=== PATIENT | male | born 1970 | race Hispanic/Latino ===

== ENCOUNTER 2020-10-02 03:56 | Observation (INO) | payer BC ==
--- NOTE | 2020-10-02 04:58 | EDPHYS ---
Physician Documentation [facility] Name: Vipin Grant Jr Age: 50 yrs Sex: Male : 1970 Arrival Date: 10/02/2020 Time: 04:00 Bed 19 Private MD: ED Physician Aubrey Thompson HPI: 10/02 04:53 This 50 yrs old Male presents to ER via Ambulatory with complaints of Chest raheel Pain > 30 y/o. 04:53 The patient or guardian reports chest pain that is located primarily in the anterior raheel chest wall, left. Onset: just prior to arrival, this morning. The pain radiates to the left arm. Associated signs and symptoms: The patient has no apparent associated signs or symptoms. The chest pain is described as a heaviness, a pressure. Duration: The patient or guardian reports a single episode, that is still ongoing. Modifying factors: The symptoms are alleviated by nothing. the symptoms are aggravated by nothing. Severity of pain: At its worst the pain was moderate in the emergency department the pain is unchanged. The patient has not experienced similar symptoms in the past. Historical: - Allergies: 04:50 Codeine; em - Home Meds: 04:50 None [Active]; em - PMHx: 04:50 None; em - PSHx: 04:50 None; em - Immunization history:: Adult Immunizations unknown. - Social history:: Smoking status: Patient denies any tobacco usage or history of. - Family history:: not pertinent. ROS: 04:53 Constitutional: Negative for fever, chills, and weight loss, Eyes: Negative for injury, raheel pain, redness, and discharge, ENT: Negative for injury, pain, and discharge, Neck: Negative for injury, pain, and swelling, Respiratory: Negative for shortness of breath, cough, wheezing, and pleuritic chest pain, Abdomen/GI: Negative for abdominal pain, nausea, vomiting, diarrhea, and constipation, Back: Negative for injury and pain, : Negative for injury, bleeding, discharge, and swelling, MS/Extremity: Negative for injury and deformity, Skin: Negative for injury, rash, and discoloration, Neuro: Negative for headache, weakness, numbness, tingling, and seizure, Psych: Negative for depression, anxiety, suicide ideation, homicidal ideation, and hallucinations, Allergy/Immunology: Negative for hives, rash, and allergies, Endocrine: Negative for neck swelling, polydipsia, polyuria, polyphagia, and marked weight changes, Hematologic/Lymphatic: Negative for swollen nodes, abnormal bleeding, and unusual bruising. 04:53 Cardiovascular: Positive for chest pain. Exam: 04:53 Constitutional: This is a well developed, well nourished patient who is awake, alert, raheel and in no acute distress. Head/Face: Normocephalic, atraumatic. Eyes: Pupils equal round and reactive to light, extra-ocular motions intact. Lids and lashes normal. Conjunctiva and sclera are non-icteric and not injected. Cornea within normal limits. Periorbital areas with no swelling, redness, or edema. ENT: Nares patent. No nasal discharge, no septal abnormalities noted. Tympanic membranes are normal and external auditory canals are clear. Oropharynx with no redness, swelling, or masses, exudates, or evidence of obstruction, uvula midline. Mucous membranes moist. Neck: Trachea midline, no thyromegaly or masses palpated, and no cervical lymphadenopathy. Supple, full range of motion without nuchal rigidity, or vertebral point tenderness. No Meningismus. Chest/axilla: Normal chest wall appearance and motion. Nontender with no deformity. No lesions are appreciated. Cardiovascular: Regular rate and rhythm with a normal S1 and S2. No gallops, murmurs, or rubs. Normal PMI, no JVD. No pulse deficits. Respiratory: Lungs have equal breath sounds bilaterally, clear to auscultation and percussion. No rales, rhonchi or wheezes noted. No increased work of breathing, no retractions or nasal flaring. Abdomen/GI: Soft, non-tender, with normal bowel sounds. No distension or tympany. No guarding or rebound. No evidence of tenderness throughout. Back: No spinal tenderness. No costovertebral tenderness. Full range of motion. Male : Normal genitalia with no discharge or lesions. Skin: Warm, dry with normal turgor. Normal color with no rashes, no lesions, and no evidence of cellulitis. MS/ Extremity: Pulses equal, no cyanosis. Neurovascular intact. Full, normal range of motion. Neuro: Awake and alert, GCS 15, oriented to person, place, time, and situation. Cranial nerves II-XII grossly intact. Motor strength 5/5 in all extremities. Sensory grossly intact. Cerebellar exam normal. Normal gait. Psych: Awake, alert, with orientation to person, place and time. Behavior, mood, and affect are within normal limits. 04:53 Musculoskeletal/extremity: DVT Exam: No signs of deep vein thrombosis. no pain, no swelling, no tenderness, negative Homans' sign noted on exam, no appreciated bluish discoloration, no erythema, no increased warmth. Vital Signs: 04:56 BP 152 / 100; Pulse 76; Resp 18; Temp 98; Pulse Ox 97% ; Weight 83.91 kg; Height 5 ft. ea 7 in. (170.18 cm); Pain 7/10; 05:25 BP 126 / 87; Pulse 68; Resp 23; Pulse Ox 95% ; ds4 07:30 BP 154 / 102; Pulse 56; Resp 18; Pulse Ox 96% ; bp 08:30 BP 117 / 85; Pulse 58; Resp 18; Pulse Ox 95% ; bp 09:30 BP 114 / 84; Pulse 58; Resp 17; Pulse Ox 93% ; bp 10:30 BP 107 / 88; Pulse 54; Resp 20; Weight 43.54 kg; bp 11:30 BP 149 / 83; Pulse 61; Resp 17; Pulse Ox 97% ; bp 12:30 BP 120 / 89; Pulse 53; Resp 16; Pulse Ox 97% ; bp 10:30 Body Mass Index 15.04 (43.54 kg, 170.18 cm) bp MDM: 04:36 Patient medically screened. raheel 04:55 Differential diagnosis: abnormal EKG, acute myocardial infarction, chest wall pain, raheel congestive heart failure cholecystitis, Cholelithiasis esophagitis, gastroesophageal reflux disease (GERD), hiatal hernia, pneumonia, pulmonary embolus, stable angina, unstable angina. HEART Score: History: Moderately Suspicious (1), ECG: Non specific repolarization disturbance / LBTB / PM (1), Age: < or = 45 years (0), Risk Factors: No Risk Factors Known (0), Troponin: < or = 1 x Normal Limit (0). The patient was given aspirin in the Emergency Department. The patient's deep vein thrombosis risk score was calculated as follows: Total Score: 0. This patient was found to be at low risk for a deep vein thrombosis by using the Well's assessment criteria. The patient's pulmonary embolism risk score was calculated as follows: Total Score: 0-2 points. This patient was found to be at low risk for a pulmonary embolism by using the Well's assessment criteria. [place] Risk Score: TOTAL SCORE = 0. Data reviewed: vital signs, nurses notes, lab test result(s), EKG, radiologic studies, CT scan, plain films. Data interpreted: color television console monitor: rate is 69 beats/min, rhythm is regular. Test interpretation: by ED physician or midlevel provider: ECG, plain radiologic studies. 10/02 04:05 Order name: Basic Metabolic Panel [facility] 10/02 04:05 Order name: CBC with Diff [facility] 10/02 04:05 Order name: LFT's [facility] 10/02 04:05 Order name: Magnesium [facility] 10/02 04:05 Order name: NT PRO-BNP [facility] 10/02 04:05 Order name: PT-INR [facility] 10/02 04:05 Order name: Troponin (emerg Dept Use Only); Complete Time: 05:43 [facility] 10/02 04:05 Order name: Lipase; Complete Time: 05:43 [facility] 10/02 04:05 Order name: COVID-19 : Document "Date of Symptom Onset" if Symptomatic. [facility] 10/02 04:06 Order name: Basic Metabolic Panel; Complete Time: 05:43 [facility] 10/02 04:06 Order name: CBC with Automated Diff; Complete Time: 05:15 [facility] 10/02 04:06 Order name: Liver (Hepatic) Function; Complete Time: 05:43 [facility] 10/02 04:06 Order name: Magnesium; Complete Time: 05:43 [facility] 10/02 04:06 Order name: NT PRO-BNP; Complete Time: 05:43 [facility] 10/02 04:05 Order name: XRAY Chest (1 view) [facility] 10/02 04:05 Order name: EKG; Complete Time: 04:06 [facility] 10/02 04:06 Order name: Protime (+INR) [facility] 10/02 05:12 Order name: COVID-19 : Document "Date of Symptom Onset" if Symptomatic. 10/02 08:21 Order name: SARS-COV-2 RT PCR [facility] 10/02 11:34 Order name: Troponin I [facility] 10/02 11:34 Order name: Lipid Profile [facility] 10/02 11:34 Order name: T4 Free [facility] 10/02 11:34 Order name: Thyroid Stimulating Hormone [facility] 10/02 04:05 Order name: Cardiac monitoring; Complete Time: 04:47 raheel 10/02 04:05 Order name: EKG - Nurse/Tech; Complete Time: 04:47 raheel 10/02 04:05 Order name: IV Saline Lock; Complete Time: 04:47 raheel 10/02 04:05 Order name: Labs collected and sent; Complete Time: 04:47 raheel 10/02 04:05 Order name: O2 Per Protocol; Complete Time: 04:47 raheel 10/02 04:05 Order name: O2 Sat Monitoring; Complete Time: 04:47 raheel Administered Medications: 05:01 Not Given (Duplicate Order): PlaVIX (clopidogrel) 300 mg PO once raheel 05:10 Drug: Aspirin Chewable Tablet 324 mg Route: PO; ea 08:33 Follow up: Response: No adverse reaction bp 05:10 Drug: Lovenox (enoxaparin) 1 mg/kg Route: Sub-Q; Site: right lower abdomen; ea 08:33 Follow up: Response: No adverse reaction bp 05:10 Drug: Lopressor (metoprolol TARTRATE) 50 mg Route: PO; ea 08:33 Follow up: Response: No adverse reaction bp 05:10 Drug: Pepcid (famotidine) 20 mg Route: IVP; Site: right antecubital; ea 08:33 Follow up: Response: No adverse reaction bp 05:10 Drug: morphine 2 mg Route: IVP; Site: right antecubital; ea 08:32 Follow up: Response: Pain is decreased bp 05:10 Drug: Zofran (Ondansetron) 4 mg Route: IVP; Site: right antecubital; ea 08:32 Follow up: Response: No adverse reaction bp Disposition Summary: 10/02/20 04:57 Hospitalization Ordered Hospitalization Status: Observation raheel Provider: Avtar Adler cha Condition: Fair raheel Problem: new raheel Symptoms: have improved raheel Bed/Room Type: Standard raheel Location: Telemetry/MedSurg (observation)(10/02/20 09:22) dw Room Assignment: 211(10/02/20 09:22) dw Diagnosis - Chest pain, unspecified raheel Forms: - Medication Reconciliation Form raheel - SBAR form raheel Signatures: Dispatcher [employer] Kaye Powers RN Aubrey Sorensen MD MD cha Munoz, Edgar, RN RN Shannan John, RN RN Ed Barry RN RN bp Corrections: (The following items were deleted from the chart) 08:40 04:57 Telemetry/MedSurg (observation) raheel bp 08:40 04:57 raheel bp 09:22 08:40 [facility] ER HOLD bp dw 09:22 08:40 ERHOLD- bp dw
--- NOTE | 2020-10-02 04:58 | ER ---
Nurse's Notes [facility] Name: Vipin Grant Jr Age: 50 yrs Sex: Male : 1970 Arrival Date: 10/02/2020 Time: 04:00 Bed 19 Private MD: Diagnosis: Chest pain, unspecified Presentation: 10/02 04:48 Chief complaint: Patient states: Reports chest pain that woke him up from his sleep at em 2 am, pt reports it feels like pressure on the upper left chest. Reports he had a recent loss. Coronavirus screen: At this time, the client does not indicate any symptoms associated with coronavirus-19. Ebola Screen: No symptoms or risks identified at this time. Initial Sepsis Screen: Does the patient meet any 2 criteria? No. Patient's initial sepsis screen is negative. Does the patient have a suspected source of infection? No. Patient's initial sepsis screen is negative. Risk Assessment: Do you want to hurt yourself or someone else? Patient reports no desire to harm self or others. Onset of symptoms was October 02, 2020. 04:48 Acuity: RADHA 3 em 04:48 Method Of Arrival: Ambulatory em Triage Assessment: 04:49 General: Appears uncomfortable, Behavior is appropriate for age. Pain: Complains of em pain in anterior aspect of left upper chest. Neuro: Level of Consciousness is awake, alert, obeys commands, Oriented to person, place, time. Cardiovascular: Patient's skin is warm and dry. Respiratory: Airway is patent Respiratory effort is even, unlabored, Respiratory pattern is regular, symmetrical. Derm: Skin is pink, warm \T\ dry. Historical: - Allergies: 04:50 Codeine; em - Home Meds: 04:50 None [Active]; em - PMHx: 04:50 None; em - PSHx: 04:50 None; em - Immunization history:: Adult Immunizations unknown. - Social history:: Smoking status: Patient denies any tobacco usage or history of. - Family history:: not pertinent. Screenin:47 Abuse screen: Denies threats or abuse. Nutritional screening: No deficits noted. em Tuberculosis screening: No symptoms or risk factors identified. Fall Risk IV access (20 points). Assessment: 05:11 Reassessment: Patient and/or family updated on plan of care and expected duration. Pain ea level reassessed. Patient is alert, oriented x 3, equal unlabored respirations, skin warm/dry/pink. Hospitalist at bedside updating pt on plan of care. 07:00 Reassessment: RECD REPORT FROM SHANNAN POP. 50YO HM P/W CHEST PAIN. ADMIT INITIATED. bp 09:00 Reassessment: No changes from previously documented assessment. bp 11:00 Reassessment: No changes from previously documented assessment. Patient and/or family bp updated on plan of care and expected duration. Pain level reassessed. Patient is alert, oriented x 3, equal unlabored respirations, skin warm/dry/pink. 12:23 Reassessment: REPORT TO CELY POP. bp Vital Signs: 04:56 BP 152 / 100; Pulse 76; Resp 18; Temp 98; Pulse Ox 97% ; Weight 83.91 kg; Height 5 ft. ea 7 in. (170.18 cm); Pain 7/10; 05:25 BP 126 / 87; Pulse 68; Resp 23; Pulse Ox 95% ; ds4 07:30 BP 154 / 102; Pulse 56; Resp 18; Pulse Ox 96% ; bp 08:30 BP 117 / 85; Pulse 58; Resp 18; Pulse Ox 95% ; bp 09:30 BP 114 / 84; Pulse 58; Resp 17; Pulse Ox 93% ; bp 10:30 BP 107 / 88; Pulse 54; Resp 20; Weight 43.54 kg; bp 11:30 BP 149 / 83; Pulse 61; Resp 17; Pulse Ox 97% ; bp 12:30 BP 120 / 89; Pulse 53; Resp 16; Pulse Ox 97% ; bp 10:30 Body Mass Index 15.04 (43.54 kg, 170.18 cm) bp ED Course: 04:00 Patient arrived in ED. wm 04:04 Aubery Thompson MD is Attending Physician. raheel 04:48 Patient has correct armband on for positive identification. Placed in gown. Bed in low em position. Call light in reach. Side rails up X2. athletic monitor on. Pulse ox on. NIBP on. 04:49 Triage completed. em 04:49 Arm band placed on right wrist. Patient placed in an exam room, on a stretcher, on em campus monitor, on pulse oximetry. 04:50 Patient maintains SpO2 saturation greater than 95% on room air. em 04:53 Inserted saline lock: 20 gauge in right antecubital area, using aseptic technique. ds4 Blood collected. 04:54 XRAY Chest (1 view) In Process Unspecified. EDMS 04:56 Shannan Madrid RN is Primary Nurse. ea 04:57 Avtar Adler is Hospitalizing Provider. raheel 05:12 No provider procedures requiring assistance completed. Patient admitted, IV remains in ea place. 07:22 Primary Nurse role handed off by Shannan Madrid RN bp 07:22 Ed Weiner, KIESHA is Primary Nurse. bp Administered Medications: 05:01 Not Given (Duplicate Order): PlaVIX (clopidogrel) 300 mg PO once raheel 05:10 Drug: Aspirin Chewable Tablet 324 mg Route: PO; ea 08:33 Follow up: Response: No adverse reaction bp 05:10 Drug: Lovenox (enoxaparin) 1 mg/kg Route: Sub-Q; Site: right lower abdomen; ea 08:33 Follow up: Response: No adverse reaction bp 05:10 Drug: Lopressor (metoprolol TARTRATE) 50 mg Route: PO; ea 08:33 Follow up: Response: No adverse reaction bp 05:10 Drug: Pepcid (famotidine) 20 mg Route: IVP; Site: right antecubital; ea 08:33 Follow up: Response: No adverse reaction bp 05:10 Drug: morphine 2 mg Route: IVP; Site: right antecubital; ea 08:32 Follow up: Response: Pain is decreased bp 05:10 Drug: Zofran (Ondansetron) 4 mg Route: IVP; Site: right antecubital; ea 08:32 Follow up: Response: No adverse reaction bp Outcome: 04:57 Decision to Hospitalize by Provider. raheel 05:12 Instructed on the need for admit, Demonstrated understanding of instructions. ea 09:50 Discharged to home ambulatory, with family. bp 09:50 Condition: stable 14:20 Patient left the ED. bp Signatures: Dispatcher [employer] EDMS Aubrey Thompson MD MD cha Munoz, Edgar, RN RN Korey Durant ds4 Shannan Madrid RN RN ea Peltier, Brian, RN RN bp Marsh, Wendy wm
[2020-10-02 05:08] LABS: Absolute Lymphocytes (CBC) 1.5 K/uL (0.7-4.9); Basophils % 0.6 % (0-1.3); Hematocrit 39.8 % (39.6-49.0); Lymphocytes % 27.3 % (15.3-44.8); MPV 7.3 fL (7.6-11.3); RBC Red Blood Cell Count 4.28 M/uL (4.33-5.43)
--- NOTE | 2020-10-02 05:11 | P.HP ---
Certification for Inpatient Patient admitted to: Observation With expected LOS: <2 Midnights Patient will require the following post-hospital care: None Practitioner: I am a practitioner with admitting privileges, knowledge of patient current condition, hospital course, and medical plan of care. Services: Services provided to patient in accordance with Admission requirements found in Title 42 Section 412.3 of the Code of Federal Regulations Patient History Date of Service: 10/02/20 Reason for admission: Chest pain History of Present Illness: 50-year-old otherwise healthy male presents emergency department for chest pain. Patient reports pain woke him up from his sleep described as pressure-like radiating to the left arm with no other associated signs or symptoms. Patient and father with cardiac history EKG without any ST segment changes chest x-ray unremarkable. ED provider wishes to admit under observation for further evaluation and management. Patient given full dose Lovenox, aspirin, beta-hector in the ER. Allergies codeine Allergy (Verified 09/03/16 08:12) Shortness of breath Home Medications: Amox/Clavulanate [Augmentin 875-125 Tab*] 875 mg PO BID 09/03/16 Aspirin [Aspirin EC] 81 mg PO DAILY #30 tablet. 09/03/16 Pantoprazole Sodium [Protonix] 40 mg PO DAILY #30 tablet. 09/03/16 - Past Medical/Surgical History Diabetic: No -: none -: none - Family History Father -: Heart disease, Diabetes Mother -: Heart disease - Social History Smoking Status: Never smoker Alcohol use: Yes CD- Drugs: No Caffeine use: Yes Place of Residence: Home Review of Systems 10-point ROS is otherwise unremarkable Cardiovascular: Chest Pain Physical Examination - Physical Exam General: Alert, In no apparent distress, Oriented x3 HEENT: Atraumatic, PERRLA, Mucous membr. moist/pink, EOMI, Sclerae nonicteric Neck: Supple, 2+ carotid pulse no bruit, No LAD, Without JVD or thyroid abnormality Respiratory: Clear to auscultation bilaterally, Normal air movement Cardiovascular: Regular rate/rhythm, Normal S1 S2 Gastrointestinal: Normal bowel sounds, No tenderness Musculoskeletal: No tenderness Integumentary: No rashes Neurological: Normal speech, Normal strength at 5/5 x4 extr, Normal tone, Normal affect Assessment and Plan - Plan Assessment: Chest pain rule out ACS Plan: Chest pain rule out ACS: Trend troponins, monitor on telemetry, daily aspirin, statin, beta-hector. Cardiology consult in place. Lipid panel, thyroid panel with morning labs. DVT PPX: Lovenox Code status: Full Discharge Plan: Home Plan to discharge in: 24 Hours - Advance Directives Does patient have a Living Will: No Does patient have a Durable POA for Healthcare: No - Code Status/Comfort Care Code Status Assessed: Yes (Full code) Critical Care: No Time Spent Managing Pts Care (In Minutes): 55
[2020-10-02] MEDS ORDERED: CLOPIDOGREL 75 MG TABLET ONE (05:22)
[2020-10-02] MEDS ORDERED: MORPHINE 2 MG/ML SYR ONE ×2 (05:22→14:17)
[2020-10-02] MEDS ORDERED: METOPROLOL TAR 50 MG TAB ONE (05:22)
[2020-10-02] MEDS ORDERED: ONDANSETRON 4 MG/2 ML VIAL ONE (05:22)
[2020-10-02] MEDS ORDERED: FAMOTIDINE 20 MG/2 ML VIAL IV ONE (05:23)
[2020-10-02] MEDS ORDERED: ENOXAPARIN 80 MG/0.8 ML SQ ONE (05:23)
[2020-10-02] MEDS ORDERED: ASPIRIN 325 MG TAB ONE (05:23)
[2020-10-02 05:42] LABS: ALT/SGPT 47 U/L (12-78); AST/SGOT 47 U/L (15-37); Albumin 3.7 g/dL (3.4-5.0); Alkaline Phosphatase 115 U/L (45-117); BUN Blood Urea Nitrogen 15 mg/dL (7-18); Bicarbonate 28 mmol/L (21-32); Bilirubin Direct < 0.1 mg/dL (0-0.2); Bilirubin Total 0.2 mg/dL (0.2-1.0); Glucose Level 95 mg/dL (74-106); Lipase 114 U/L (73-393); Magnesium 2.1 mg/dL (1.8-2.4); NT PRO-BNP 9 pg/mL (<125); Potassium 3.8 mmol/L (3.5-5.1); Protein, Total 7.4 g/dL (6.4-8.2); Sodium Level 140 mmol/L (136-145); Troponin (Emerg Dept Use Only) < 0.02 ng/mL (0.0-0.045)
[2020-10-02] MEDS ORDERED: ONDANSETRON 4 MG/2 ML VIAL IV PRN (08:38)
[2020-10-02] MEDS ORDERED: MORPHINE 2 MG/ML SYR IV PRN (08:38)
[2020-10-02] MEDS ORDERED: ACETAMINOPHEN 500 MG TAB PO PRN (08:38)
[2020-10-02] MEDS: ENOXAPARIN 40 MG/0.4 ML SQ SCH (09:00)
--- NOTE | 2020-10-02 10:16 | RAD REPORT ---
EXAM DESCRIPTION: RAD - Chest Single View - 10/02/2020 4:53 am CLINICAL HISTORY: CHEST PAIN Chest pain. COMPARISON: Chest Single View dated 09/03/2016; CHEST PA AND LAT 2 VIEW dated 04/12/2008; CHEST SINGLE V IEW dated 11/27/2007; CHEST PA AND LAT 2 VIEW dated 11/19/1999 FINDINGS: Portable technique limits examination quality. The lungs are grossly clear. The heart is normal in size. No displaced fractures. IMPRESSION: No acute intrathoracic process suspected.
[2020-10-02 11:34] LABS: HDL Cholesterol 64 mg/dL (40-60); LDL Cholesterol, Calculated 107 (<130); Troponin I < 0.02 ng/mL (0.0-0.045)
[2020-10-02 14:58] VITALS: BMI 29.7
--- NOTE | 2020-10-02 17:26 | CON ---
Date of Consultation: 10/02/2020 Reason For Consultation: Chest pain. 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 It was sharp at first on the left upper chest and then became pressure like, lasted for some time and then resolved. Denies having any nausea, vo miting, or diaphoresis with it. No exertional chest pain. Denies having any other complaints. Jackson es having any cough or fever. Past Medical History: None. Medications: None. Allergies: CODEINE. Family History: No premature coronary artery disease or cancer. Social History: Does not smoke or drink. Does not use any drugs. Review of Systems: All systems reviewed and they were negative except mentioned in HPI. Physical Examination: Vital Signs: His temperature is 97.0, pulse 54, breathing at 17, blood pressure 119/79, saturating 9 7% on room air. General: Pleasant middle-aged male, in no distress. Head and Neck: Pupils are equal, reactive to light. Intact eye movements. No JVD. No cervical lym phadenopathy. Neck: Supple. Thyroid is not enlarged. Lungs: Clear to auscultation bilaterally. No rhonchi, rales, or crackles. No accessory muscle use. Heart: Regular rate and rhythm. No extra sounds. Abdomen: Soft, nontender. Bowel sounds positive. No organomegaly. No masses or hernia. No rigidi ty or rebound. Extremities: No edema, clubbing, or cyanosis. Intact pulses. Skin: No rash noted. Neurologic: Alert, awake, oriented x3. No acute focal deficits appreciated. Investigations: Troponins x3 are negative. LDL is 107, creatinine 1.06, hemoglobin 13.8. EKG witho ut acute specific abnormalities. Chest x-ray is negative. Assessment And Recommendations: Chest pain, atypical pain. The patient is very athletic without exe rtional chest pain. Cardiac enzymes are negative. From cardiac standpoint, I will recommend to [facility] D-dimer. If it is negative, then the patient can be released and follow up as an outpatient for ex ercise stress test and echocardiogram. SR/MODL Voice ID: [id number] Report ID: [id number]
[2020-10-02 17:57] LABS: Urine Appearance CLEAR (Clear); Urine Bilirubin NEGATIVE (Negative); Urine Blood NEGATIVE (Negative); Urine Color YELLOW (Yellow); Urine Glucose NEGATIVE (Negative); Urine Protein NEGATIVE (Negative); Urine Urobilinogen 0.2 mg/dL (0.2-1.0)
[2020-10-02 18:05] LABS: Urine Microscopic Reflex NO UMIC
[2020-10-02] MEDS ORDERED: ATORVASTATIN 40 MG TAB PO SCH (21:00)
[2020-10-03 06:00] LABS: Absolute Lymphocytes (CBC) 1.8 K/uL (0.7-4.9); Basophils % 0.4 % (0-1.3); Lymphocytes % 35.1 % (15.3-44.8); MPV 7.2 fL (7.6-11.3); RBC Red Blood Cell Count 4.09 M/uL (4.33-5.43)
[2020-10-03] MEDS ORDERED: METOPROLOL TAR 25 MG TAB PO SCH (06:00)
[2020-10-03 06:28] LABS: Albumin 3.4 g/dL (3.4-5.0); Bilirubin Total 0.7 mg/dL (0.2-1.0); Potassium 4.1 mmol/L (3.5-5.1); Protein, Total 6.7 g/dL (6.4-8.2)
[2020-10-03] MEDS: ENOXAPARIN 40 MG/0.4 ML SQ SCH (08:31)
[2020-10-03] MEDS ORDERED: ASPIRIN EC 81 MG TAB PO SCH (09:00)
[2020-10-03 12:36] VITALS: O2SAT 95
[2020-10-03 12:48] VITALS: BP 129/70; TEMP 97.5
--- NOTE | 2020-10-03 12:59 | RAD REPORT ---
EXAM DESCRIPTION: NM - Rest Stress Cardiac Imaging - 10/03/2020 12:36 pm CLINICAL HISTORY: Chest pain COMPARISON: None. TECHNIQUE: The patient was administered 10.3 mCi of Tc 99m Sestamibi prior to resting SPECT imaging of the heart. The patient was then administered 31.2 mCi of Tc 99m Sestamibi following exercise or ph armacologic stress. Multiplanar SPECT images were reviewed. FINDINGS: The end diastolic volume is 122 ml, the end systolic volume is 60 ml, and the ejection fra ction is 51 %. Physiologic distribution of the radiopharmaceutical through the myocardium is noted. No stress induce d ischemic defect is seen to suggest stress induced ischemia. No fixed defect is seen to suggest hibe rnating myocardium or scarred myocardium. IMPRESSION: No stress induced ischemia or other suspicious findings. End-diastolic volume was 122 milliliters with a 51% ejection fraction.
--- NOTE | 2020-10-03 13:47 | TREADMILL ---
70% H.R.: 120 85% H.R.: 1496 90% H.R.: 155 100% H.R.: 172 DX: CHEST PAIN Date of Study: 10/03/2020 Ht: 5' 7 " Wt: 96 lb 0 oz Consulting Physician: KATERYNA MEDICATIONS: LIPITOR, ASPIRIN, LOVENOX, LOPRESSOR HISTORY: 50 YEAR OLD WITH ATYPICAL CHEST PAIN PHYSICIAL EXAMINATION: RESTING B.P.: 121/72 RESTING H.R.: 73 RESTING EKG: NORMAL PROTOCOL: JENNIFER CARDIOLITE EXERCISE TIME: 10:20 MAXIMUM HEART RATE: 158 91 % OF PREDICTED B.P. AT PEAK STRESS: 207/88 H.R. AT 1 MINUTE POST EXERCISE: 132 IMPRESSION: JENNIFER CARDIOLITE PERFORMED. CARDIOLITE INJECTED PER PROTOCOL. SEE NUCLEAR MEDICINE REPORT. NO ARRHYTHMIAS NOTED. THE PATIENT EXERCISED ACCORDING TO THE JENNIFER TO 10:20, ACHIENVING A WORK LEVEL OF MAX METS: 12:35. THE MAXIMAL HEART RATE OF 158 BEATS PER MINUTE. THIS VALUE REPRESENTS 90% OF THE MAXIMAL HEART RATE. THE MAXIMUM BLOOD PRESSURE OF 207/88 mmHg.
--- NOTE | 2020-10-03 14:12 | P.DS ---
Admission Date: 10/02/20 Discharge Date: 10/03/20 Disposition: ROUTINE DISCHARGE Discharge Condition: FAIR Reason for Admission: Chest pain - Problems (1) Chest pain Current Visit: No Status: Acute Qualifiers: Chest pain type: unspecified Qualified Code(s): R07.9 - Chest pain, unspecified (2) GERD (gastroesophageal reflux disease) Current Visit: No Status: Suspected Qualifiers: Esophagitis presence: without esophagitis Qualified Code(s): K21.9 - Gastro-esophageal reflux disease without esophagitis Brief History of Present Illness: 50-year-old gentleman presented emergency department for chest pain. Patient reports chest pain pain which woke him up from his sleep described as pressure- like radiating to the left arm with no other associated signs or symptoms. Patient reported significant CAD family history. EKG without any ST segment changes, chest x-ray unremarkable. Patient hospitalized for further management. Hospital Course: Patient placed under observation. His troponin trended negative. Patient was chest pain-free during the hospital stay. Nuclear stress test done showed no stress-induced ischemia. He was seen in consultation by cardiology. ACS has been ruled out. Patient deemed stable for discharge. Vital Signs/Physical Exam: Temp Pulse Resp BP Pulse Ox 97.5 F 81 16 129/70 95 10/03/20 12:00 10/03/20 12:00 10/03/20 12:00 10/03/20 12:00 10/03/20 12:00 General: Alert, In no apparent distress, Oriented x3 HEENT: Mucous membr. moist/pink Neck: JVD not distended Respiratory: Clear to auscultation bilaterally, Normal air movement Cardiovascular: No edema, Regular rate/rhythm, Normal S1 S2 Gastrointestinal: Normal bowel sounds, Soft and benign, Non-distended Musculoskeletal: No swelling Integumentary: No rashes Neurological: Normal strength at 5/5 x4 extr Laboratory Data at Discharge: WBC 5.10 K/uL (4.3-10.9) 10/03/20 05:26 Hgb 13.2 g/dL (13.6-17.9) L 10/03/20 05:26 Hct 38.0 % (39.6-49.0) L 10/03/20 05:26 Plt Count 312 K/uL (152-406) 10/03/20 05:26 PT Cancelled 10/02/20 04:05 INR Cancelled 10/02/20 04:05 Sodium 139 mmol/L (136-145) 10/03/20 05:26 Potassium 4.1 mmol/L (3.5-5.1) 10/03/20 05:26 BUN 17 mg/dL (7-18) 10/03/20 05:26 Creatinine 1.15 mg/dL (0.55-1.3) 10/03/20 05:26 Glucose 95 mg/dL (74-106) 10/03/20 05:26 Magnesium 2.1 mg/dL (1.8-2.4) 10/02/20 04:51 Total Bilirubin 0.7 mg/dL (0.2-1.0) 10/03/20 05:26 AST 32 U/L (15-37) 10/03/20 05:26 ALT 39 U/L (12-78) 10/03/20 05:26 Alkaline Phosphatase 81 U/L (45-117) 10/03/20 05:26 Troponin I Cancelled 10/02/20 17:00 Triglycerides 78 mg/dL (<150) 10/02/20 10:44 Cholesterol 187 mg/dL (<200) 10/02/20 10:44 HDL Cholesterol 64 mg/dL (40-60) H 10/02/20 10:44 Cholesterol/HDL Ratio 2.92 10/02/20 10:44 Lipase 114 U/L (73-393) 10/02/20 04:51 Home Medications: Aspirin [Aspirin EC 81 MG] 81 mg PO DAILY #30 tablet. 10/03/20 New Medications: Aspirin [Aspirin EC 81 MG] 81 mg PO DAILY #30 tablet. Diet: AHA Activity: Ad [place] Followup: NONE,NONE [Primary Care Provider] - Yefri Serrato MD [ACTIVE - CAN ADMIT] - 1-2 Weeks
--- NOTE | 2020-10-06 11:18 | PN ---
Date of Progress Note: 10/03/2020 Mr. Grant is 50, was seen by Dr. Serrato for chest pain. Underwent a stress Myoview on 10/03/2020. H bailee had a normal EKG. No ST changes with exercise. Normal blood pressure, normal blood pressure respo nse. No arrhythmia. The nuclear stress test was read as negative without any evidence of ischemia. Mr. Grant can go home whenever it is okay with admitting physician. If his pain returns, we will be happy to see him in the office. YOANA/JUAN C Voice ID: [id number] Report ID: [id number]
== END 2020-10-03 14:58 | disposition home or self-care (01) ==
LOC: ER 03:56 → ERHOLD 05:05 → 2ND 11:56
PROVIDERS: ADMIT Internal Medicine; ATTEND Internal Medicine
DX: R07.89 Other chest pain (principal); K21.9 Gastro-esophageal reflux disease without esophagitis; Z20.822 Contact with and (suspected) exposure to COVID-19; Z88.6 Allergy status to analgesic agent; Z79.82 Long term (current) use of aspirin; Z82.49 Family history of ischemic heart disease and other diseases of the circulatory system; Z83.3 Family history of diabetes mellitus
CPT/HCPCS: 93017; 85025 ×2; 80048; 36415 ×2; 83735; 80061; 85379; 80076; 84443; 81003; 84484 ×3; 84439; 83690; 80053; 83880; 71045; 78452; 96375; 96372; 96374; 99285; U0003; J1650; J2270 ×3; J2405; A9500; G0378 ×3